=== PATIENT | female | born 1995 | race Caucasian/White ===

== ENCOUNTER → 2023-06-17 | Outpatient (CLI) | payer OTHER ==
[2023-06-17 15:58] LABS: HEMATOCRIT 39.8 % (36.0-47.0); MEAN CORPUSCULAR HEMOGLOBIN 29.8 pg (27.0-33.0); MEAN CORPUSCULAR HGB CONC 32.7 g/dl (32.0-36.5); MEAN CORPUSCULAR VOLUME 91.3 fl (80.0-96.0); PLATELET COUNT, AUTOMATED 278 10^3/uL (150-450); RED BLOOD COUNT 4.36 10^6/uL (4.00-5.40); WHITE BLOOD COUNT 9.5 10^3/uL (4.0-10.0)
[2023-06-17 16:21] LABS: HIV 1&2 SCREEN NEGATIVE (NEGATIVE)
[2023-06-17 16:30] LABS: HEPATITIS C VIRUS ABY INDEX 0.09 INDEX (<0.8)
[2023-06-17 17:13] LABS: GC DNA AMPLIFICATION NEGATIVE (NEGATIVE)
== END ==
LOC: M PLALAB 13:11
PROVIDERS: ATTEND Obstetrics & Gynecology
DX: Z34.91 Encounter for supervision of normal pregnancy, unspecified, first trimester (principal)

== ENCOUNTER → 2023-07-16 | Outpatient (CLI) | payer BC, OTHER | LOC: M PLALAB 11:13 | PROVIDERS: ATTEND Obstetrics & Gynecology | DX: Z34.91 Encounter for supervision of normal pregnancy, unspecified, first trimester (principal) ==

== ENCOUNTER → 2023-09-05 | Outpatient (CLI) | payer BC, OTHER | LOC: M WHC 14:06 | PROVIDERS: ATTEND Obstetrics & Gynecology | DX: O32.1XX1 Maternal care for breech presentation, fetus 1 (principal); Z3A.19 19 weeks gestation of pregnancy ==

== ENCOUNTER → 2023-10-14 | Outpatient (CLI) | payer BC, OTHER ==
[2023-10-14 17:33] LABS: APPEARANCE, URINE CLEAR (CLEAR); BACTERIA, URINE AUTO NEGATIVE (NEGATIVE); BILIRUBIN, URINE AUTO NEGATIVE (NEGATIVE); BLOOD, URINE BLOOD NEGATIVE (NEGATIVE); COLOR, URINE YELLOW (YELLOW); GLUCOSE, URINE (UA) AUTO NEGATIVE (NEGATIVE); KETONE, URINE AUTO NEGATIVE (NEGATIVE); LEUKOCYTE ESTERASE, URINE AUTO NEGATIVE (NEGATIVE); MUCUS, URINE SMALL (NEGATIVE); NITRITE, URINE AUTO NEGATIVE (NEGATIVE); PROTEIN, URINE AUTO NEGATIVE (NEGATIVE); RBC, URINE AUTO 0 /HPF (0-3); SPECIFIC GRAVITY URINE AUTO 1.015 (1.002-1.035); SQUAMOUS EPITHELIAL CELL UR AU 1 /HPF (0-6); UROBILINOGEN, URINE AUTO 0.2 mg/dL (0.0-2.0); WBC, URINE AUTO 2 /HPF (0-3)
[2023-10-14 17:37] LABS: HEMATOCRIT 28.6 % (36.0-47.0); HEMOGLOBIN 9.4 g/dl (12.0-15.5); MEAN CORPUSCULAR HEMOGLOBIN 30.8 pg (27.0-33.0); MEAN CORPUSCULAR HGB CONC 32.9 g/dl (32.0-36.5); MEAN CORPUSCULAR VOLUME 93.8 fl (80.0-96.0); PLATELET COUNT, AUTOMATED 292 10^3/uL (150-450); RED BLOOD COUNT 3.05 10^6/uL (4.00-5.40); WHITE BLOOD COUNT 9.6 10^3/uL (4.0-10.0)
[2023-10-14 18:09] LABS: ALKALINE PHOSPHATASE 66 U/L (46-116); ALT/SGPT 29 U/L (7.0-40); AST/SGOT 17 U/L (<34); BILIRUBIN,TOTAL 0.2 MG/DL (0.3-1.2); BLOOD UREA NITROGEN 8 MG/DL (9-23); CALCIUM LEVEL 8.4 MG/DL (8.5-10.1); CARBON DIOXIDE LEVEL 26 MMOL/L (20-31); CHLORIDE LEVEL 107 MMOL/L (98-107); CREATININE FOR GFR 0.41 MG/DL (0.55-1.30); GLOMERULAR FILTRATION RATE > 60.0 (>60); GLUCOSE, FASTING 93 MG/DL (60-100); POTASSIUM SERUM 3.9 MMOL/L (3.5-5.1); SODIUM LEVEL 139 MMOL/L (136-145); TOTAL PROTEIN 5.9 G/DL (5.7-8.2)
== END ==
LOC: M PLALAB 15:47
PROVIDERS: ATTEND Advanced Practice Midwife
DX: R10.9 Unspecified abdominal pain (principal)

== ENCOUNTER → 2023-12-03 | Outpatient (CLI) | payer BC, OTHER | LOC: M RAD 11:14 | PROVIDERS: ATTEND Advanced Practice Midwife | DX: O26.899 Other specified pregnancy related conditions, unspecified trimester (principal); R10.9 Unspecified abdominal pain; Z3A.00 Weeks of gestation of pregnancy not specified ==

== ENCOUNTER 2023-12-08 16:07 | Outpatient (CLI) | payer BC, OTHER ==
[~2023-12-08] VITALS: Ht 167.6 cm; Wt 66.4 kg
[~2023-12-08 16:07] MED LIST: FERRIC CARBOXYMALTOSE INJ 750 MG in NS 250 ML (>50kg) IV ONE; diphenhydrAMINE 50MG/ML VIAL IV PRN
[2023-12-08 16:10] VITALS: BP 112/57; O2SAT 98
[2023-12-08 17:55] VITALS: BP 113/57; O2SAT 97
== END 2023-12-08 17:55 ==
LOC: M INFU 16:07
PROVIDERS: ATTEND Advanced Practice Midwife
DX: O99.019 Anemia complicating pregnancy, unspecified trimester (principal); Z3A.00 Weeks of gestation of pregnancy not specified
CPT/HCPCS: 96365; J1439

== ENCOUNTER 2023-12-19 08:20 | Outpatient (CLI) | payer BC, OTHER ==
[~2023-12-19] VITALS: Ht 167.6 cm; Wt 68.2 kg
[~2023-12-19 08:20] MED LIST changes: -FERRIC CARBOXYMALTOSE INJ 750 MG in NS 250 ML (>50kg) IV ONE
[2023-12-19 08:30] VITALS: BP 115/55; O2SAT 99
[2023-12-19] MEDS ORDERED: FERRIC CARBOXYMALTOSE INJ 750 MG in NS 250 ML (>50kg) IV ONE ×3 (08:30)
[2023-12-19 10:10] VITALS: BP 116/56; O2SAT 97
== END 2023-12-19 10:10 | disposition home or self-care (01) ==
LOC: M INFU 08:20
PROVIDERS: ATTEND Advanced Practice Midwife
DX: O99.019 Anemia complicating pregnancy, unspecified trimester (principal); Z3A.00 Weeks of gestation of pregnancy not specified
CPT/HCPCS: 96365; J1439

== ENCOUNTER → 2024-01-02 | Outpatient (CLI) | payer BC, OTHER ==
[2024-01-02 11:55] LABS: HEMOGLOBIN 11.3 g/dl (12.0-15.5); MEAN CORPUSCULAR HEMOGLOBIN 31.5 pg (27.0-33.0); MEAN CORPUSCULAR HGB CONC 33.2 g/dl (32.0-36.5); MEAN CORPUSCULAR VOLUME 94.7 fl (80.0-96.0); PLATELET COUNT, AUTOMATED 212 10^3/uL (150-450); RED BLOOD COUNT 3.59 10^6/uL (4.00-5.40); WHITE BLOOD COUNT 8.6 10^3/uL (4.0-10.0)
== END ==
LOC: M PLALAB 08:30
PROVIDERS: ATTEND Advanced Practice Midwife
DX: O99.013 Anemia complicating pregnancy, third trimester (principal); Z36.89 Encounter for other specified antenatal screening; Z3A.00 Weeks of gestation of pregnancy not specified

== ENCOUNTER 2024-01-14 15:39 | Outpatient (CLI) | payer BC, OTHER ==
[~2024-01-14] VITALS: Ht 170.2 cm; Wt 69.9 kg
[2024-01-14] MEDS ORDERED: PRENTAB9 PO (15:53)
[2024-01-14] MEDS ORDERED: HOME MED LIST COMPLETE! XX SCH (15:55)
[2024-01-14 15:56] VITALS: BP 107/56
== END 2024-01-14 17:36 | disposition home or self-care (01) ==
LOC: M LDO 15:39
PROVIDERS: ATTEND Advanced Practice Midwife
DX: O76 Abnormality in fetal heart rate and rhythm complicating labor and delivery (principal); O99.013 Anemia complicating pregnancy, third trimester; D50.9 Iron deficiency anemia, unspecified; Z3A.38 38 weeks gestation of pregnancy
CPT/HCPCS: 59025; G0463

== ENCOUNTER 2024-01-30 19:39 | Inpatient (IN) | payer BC, OTHER ==
[2024-01-30] VITALS (8 sets, daily range): BP systolic 105–129; BP diastolic 58–73
[~2024-01-30] VITALS: Ht 170.2 cm; Wt 69.9 kg
[~2024-01-30 19:39] MED LIST changes: +PRENTAB9 PO; -diphenhydrAMINE 50MG/ML VIAL IV PRN
[2024-01-30] MEDS ORDERED: HOME MED LIST COMPLETE! XX SCH (20:30)
[2024-01-30] MEDS ORDERED: METHYLERGONOVINE MALEATE 0.2MG/ML 1ML VIAL IM PRN (21:10)
[2024-01-30] MEDS ORDERED: CARBOPROST TROMETHAMINE 250 MCG/ML AMP IM PRN (21:10)
[2024-01-30] MEDS ORDERED: TRANEXAMIC ACID INJection 1,000 MG in NS 100 ML IV PRN (21:10)
[2024-01-30] MEDS ORDERED: LIDOCAINE 1% MDV 20ML VIAL INFIL PRN (21:10)
[2024-01-30] MEDS ORDERED: OXYTOCIN DRIP 30 UNITS in IV 1 EA IV PRN (21:10)
[2024-01-30 21:32] LABS: HEMATOCRIT 35.9 % (36.0-47.0); HEMOGLOBIN 12.3 g/dl (12.0-15.5); MEAN CORPUSCULAR HEMOGLOBIN 31.5 pg (27.0-33.0); MEAN CORPUSCULAR HGB CONC 34.3 g/dl (32.0-36.5); MEAN CORPUSCULAR VOLUME 92.1 fl (80.0-96.0); PLATELET COUNT, AUTOMATED 184 10^3/uL (150-450); WHITE BLOOD COUNT 8.2 10^3/uL (4.0-10.0)
[2024-01-30] MEDS: LR 1,000 ML IV SCH (21:40)
[2024-01-30] MEDS: OXYTOCIN DRIP 30 UNITS in IV 1 EA IV SCH (21:40)
[2024-01-31] VITALS (48 sets, daily range): BP systolic 89–139; BP diastolic 50–102; O2SAT 97–98
[2024-01-31] MEDS ORDERED: NALOXONE INJ 0.4MG/1ML VIAL IV PRN (02:00)
[2024-01-31] MEDS ORDERED: EPIDURAL/PCA KEYS XX PRN (02:00)
[2024-01-31] MEDS ORDERED: ePHEDrine SULFATE 25 MG/5 ML(5MG/ML) SYRINGE IVP PRN (02:00)
[2024-01-31] MEDS ORDERED: LR 500 ML IV PRN (02:00)
[2024-01-31] MEDS ORDERED: diphenhydrAMINE 50MG/ML VIAL IV PRN (02:00)
[2024-01-31] MEDS: LACTATED RINGER'S 1000 ML IV STA (04:18)
[2024-01-31] MEDS: FENTANYL/ROPIVACAINE/NACL BAG 100 ML EPIDURAL SCH (04:19)
[2024-01-31] MEDS: ONDANSETRON 4MG 2ML VIAL IV PRN (09:09)
[2024-01-31] MEDS ORDERED: DIBUCAINE 1% OINTMENT 30GM TOP PRN (12:40)
[2024-01-31] MEDS ORDERED: RHOGAM 300MCG (1500IU) INJ IM SCH (12:40)
[2024-01-31] MEDS ORDERED: METHYLERGONOVINE MALEATE 0.2 MG TAB PO PRN (12:40)
[2024-01-31] MEDS: PRENATAL VITAMINS CHEWABLE TABLET PO SCH (12:52)
[2024-01-31] MEDS: IBUPROFEN 600MG TAB PO PRN (12:52)
[2024-01-31] MEDS: DOCUSATE SODIUM 100MG CAPSULE PO PRN (20:03)
[2024-02-01] MEDS: ACETAMINOPHEN 500 MG TAB PO PRN (01:00)
[2024-02-01 05:35] VITALS: BP 120/61; O2SAT 98
[2024-02-01 07:19] LABS: HEMATOCRIT 30.1 % (36.0-47.0); MEAN CORPUSCULAR HEMOGLOBIN 31.8 pg (27.0-33.0); MEAN CORPUSCULAR HGB CONC 34.2 g/dl (32.0-36.5); MEAN CORPUSCULAR VOLUME 92.9 fl (80.0-96.0); PLATELET COUNT, AUTOMATED 149 10^3/uL (150-450); RED BLOOD COUNT 3.24 10^6/uL (4.00-5.40); WHITE BLOOD COUNT 9.5 10^3/uL (4.0-10.0)
[2024-02-01 07:21] LABS: HEMOGLOBIN 10.3 g/dl (12.0-15.5)
[2024-02-01 18:00] VITALS: BP 115/58; O2SAT 98
[2024-02-01] MEDS: MEASLES,MUMPS,RUBELLA VACCINE INJ (MMR-II) SC.IMMUN ONE (22:43)
[2024-02-02 06:00] VITALS: BP 103/57; O2SAT 98
[2024-02-02] MEDS ORDERED: IBUP-1022 PO (11:02)
[2024-02-02] MEDS ORDERED: ACET-683 PO (11:02)
== END 2024-02-02 12:34 | disposition home or self-care (01) | DRG 541 ==
LOC: M LDI 19:39 → M OBS 01-31 15:15
PROVIDERS: ADMIT Advanced Practice Midwife; ATTEND Obstetrics & Gynecology
PROC: 3E033VJ Introduction of Other Hormone into Peripheral Vein, Percutaneous Approach (ICD-10-PCS; 2024-01-30)
PROC: 10E0XZZ Delivery of Products of Conception, External Approach (ICD-10-PCS; principal; 2024-01-31)
PROC: 0KQM0ZZ Repair Perineum Muscle, Open Approach (ICD-10-PCS; 2024-01-31)
PROC: 10D17Z9 Manual Extraction of Products of Conception, Retained, Via Natural or Artificial Opening (ICD-10-PCS; 2024-01-31)
DX: O48.0 Post-term pregnancy (principal); O70.1 Second degree perineal laceration during delivery; Z3A.40 40 weeks gestation of pregnancy; Z37.0 Single live birth; O73.1 Retained portions of placenta and membranes, without hemorrhage